=== PATIENT | female | born 1985 | race African-American/Black ===

== ENCOUNTER 2020-05-04 20:10 | Emergency (ER) | payer OTHER ==
[~2020-05-04] VITALS: Ht 162.6 cm; Wt 76.0 kg
[2020-05-04 20:29] VITALS: Ht 162.6 cm; Wt 76.0 kg
[2020-05-05 05:07] VITALS: BP 136/84
== END 2020-05-05 05:07 | disposition home or self-care (01) ==
LOC: ED 20:10
DX: M54.2 Cervicalgia (principal); M54.9 Dorsalgia, unspecified; J45.909 Unspecified asthma, uncomplicated; Z91.040 Latex allergy status; V49.9XXA Car occupant (driver) (passenger) injured in unspecified traffic accident, initial encounter; Y93.I9 Activity, other involving external motion; Y92.413 State road as the place of occurrence of the external cause; Y99.8 Other external cause status